=== PATIENT | female | born 1970 | race Caucasian/White ===

== ENCOUNTER 2018-03-20 12:11 | Emergency (ER) | payer BC ==
[~2018-03-20] VITALS: Ht 157.5 cm; Wt 59.0 kg
[2018-03-20 12:25] VITALS: BP 186/102
--- NOTE | 2018-03-20 13:11 | PHYS DOC ---
Past Medical History Past Medical History: Anxiety, Hypertension Past Surgical History: Cholecystectomy, Hysterectomy, Other Additional Past Surgical Histo: "disc replacement" Alcohol Use: Rarely Drug Use: None Adult General Chief Complaint Chief Complaint: DENTAL PROBLEM HPI HPI Patient is a 47 year old female with history of hypertension, anxiety, who presents today complaining of 10 out of 10 right posterior molar pain that has been going on for 2 weeks. Patient states she has tried [id number] remedies with no relief. Denies any fever or trismus. She states she is waiting for her medical insurance to kick in to get dental care Review of Systems Review of Systems Constitutional: Denies fever or chills [] HENT: reports dental pain. Denies nasal congestion or sore throat [] Musculoskeletal: Denies back pain or joint pain [] Integument: Denies rash or skin lesions [] Neurologic: Denies headache, focal weakness or sensory changes [] All other systems were reviewed and found to be within normal limits, except as documented in this note. Allergies Allergies Allergies Coded Allergies Type Severity Reaction Last Updated Verified tramadol Allergy Intermediate rash 03/20/18 Yes Physical Exam Physical Exam Constitutional: Well developed, well nourished, no acute distress, non-toxic appearance. [] HENT: Normocephalic, atraumatic, bilateral external ears normal, oropharynx moist, no oral exudates, nose normal. [] Right upper molar is decayed. Multiple missing teeth. Multiple infected dental caries. No dental abscess. Skin: Warm, dry, no erythema, no rash. [] Back: No tenderness, no CVA tenderness. [] Extremities: No tenderness, no cyanosis, no clubbing, ROM intact, no edema. [] Neurologic: Alert and oriented X 3, normal motor function, normal sensory function, no focal deficits noted. [] Psychologic: Affect normal, judgement normal, mood normal. [] Current Patient Data Vital Signs Vital Signs Date Time Temp Pulse Resp B/P (MAP) Pulse Ox O2 Delivery O2 Flow Rate FiO2 03/20/18 12:25 98.2 95 18 186/102 (130) 98 Room Air 98.2 EKG EKG [] Radiology/Procedures Radiology/Procedures [] Course & Med Decision Making Course & Med Decision Making Pertinent Labs and Imaging studies reviewed. (See chart for details) This is a 47-year-old female patient presenting to the ED today with infected dental caries. Be discharged with amoxicillin and 10 tablets of Tylenol No. 3, she is allergic to tramadol and NSAIDs. Follow-up with her dentist as soon as possible. Andrea Disclaimer Andrea Disclaimer This electronic medical record was generated, in whole or in part, using a voice recognition dictation system. Departure Departure Impression: Primary Impression: Dentalgia Additional Impression: Infected dental caries Disposition: HOME, SELF-CARE Condition: STABLE Referrals: NON,STAFF (PCP) Follow-up with her dentist as soon as possible Patient Instructions: Dental Caries, Dental Pain, [id number] Additional Instructions: You were evaluated in the emergency room for dental pain. Please contact a dentist and follow-up with them in one to two week. Complete your antibiotics Scripts Amoxicillin (AMOXICILLIN) 875 Mg Tablet 1 TAB PO BID, #20 TAB Prov: PEARL TRACY APRN 03/20/18 Acetaminophen With Codeine (TYLENOL WITH CODEINE #3 TABLET) 1 Each Tablet 1 TAB PO PRN Q6HRS PRN for PAIN, #10 TAB Prov: PEARL TRACY APRN 03/20/18 Problem Qualifiers PEARL TRACY APRN Mar 20, 2018 13:11
[2018-03-20] MEDS ORDERED: ACET-704 PO (13:17)
[2018-03-20] MEDS ORDERED: AMOX875T PO (13:17)
== END 2018-03-20 13:46 | disposition home or self-care (01) ==
LOC: ER 12:11
DX: K02.9 Dental caries, unspecified (principal); F41.9 Anxiety disorder, unspecified; I10 Essential (primary) hypertension; Z90.49 Acquired absence of other specified parts of digestive tract; Z90.710 Acquired absence of both cervix and uterus; Z88.5 Allergy status to narcotic agent
CPT/HCPCS: 99283